=== PATIENT | male | born 1960 | race Caucasian/White ===

== ENCOUNTER 2021-10-13 06:16 | Observation (INO) ==
[2021-10-13] MEDS ORDERED: CeFAZolin Syr 2,000MG/20 ML 2,000 MG/20 ML SYRINGE IVPB ONE (06:29)
[2021-10-13] MEDS ORDERED: Ringers Solution, Lactated 1,000 ML IVC SCH ×2 (06:30→15:44)
[2021-10-13] MEDS ORDERED: Vancomycin 1,000 MG VIAL ONE (06:43)
[2021-10-13] MEDS ORDERED: Lidocaine -MPF 4% 5 ML AMPUL ONE (06:45)
[2021-10-13] MEDS ORDERED: *HR* FentaNYL (PF) 100 MCG/2 ML VIAL ONE (06:53)
[2021-10-13] MEDS ORDERED: *HR* Midazolam HCl 2 MG/2 ML VIAL ONE (06:53)
[2021-10-13] MEDS ORDERED: ROPIVACAINE/PF/NS 0.25% 1 EACH SYRINGE INTRAART ONE (06:57)
[2021-10-13] MEDS ORDERED: Ropivacaine/PF 0.5% 30 ML VIAL ONE (06:57)
[2021-10-13] MEDS ORDERED: Famotidine 20 MG TABLET PO ONE (07:00)
[2021-10-13] MEDS ORDERED: Povidone-Iodine 45 ML, Sodium Chloride IRRigation 1,000 ML IR ONE (07:30)
[2021-10-13] MEDS ORDERED: TOTAL JOINT MIXTURE (100ML) INTRAART ONE (07:30)
[2021-10-13] MEDS ORDERED: Tranexamic Acid 1,000 MG/10 ML VIAL ONE ×2 (07:46→08:18)
[2021-10-13] MEDS ORDERED: EPHEDrine 50 MG/ML VIAL ONE (08:12)
[2021-10-13] MEDS ORDERED: *HR* Propofol 200 MG/20 ML VIAL IVP ONE (10:13)
[2021-10-13] MEDS ORDERED: Sennosides 8.6 MG TABLET PO PRN (15:44)
[2021-10-13] MEDS ORDERED: Naloxone 0.4 MG/ML INJ IVP PRN (15:44)
[2021-10-13] MEDS ORDERED: *HR* Promethazine 25 MG/ML VIAL IM PRN (15:44)
[2021-10-13] MEDS ORDERED: *HR* HYDROmorphone (PF) 1 MG/ML SYRINGE IVP PRN (15:44)
[2021-10-13] MEDS ORDERED: Ondansetron 4 MG/2 ML VIAL IVP PRN (15:44)
[2021-10-13] MEDS ORDERED: MOM Conc 10 ML UD.LIQ PO PRN (15:44)
[2021-10-13] MEDS: CeFAZolin 2 GM/120 ML BAG IVPB SCH ×2 (17:00→23:50)
[2021-10-13] MEDS: Ketorolac 30 MG/ML VIAL IVP SCH ×3 (17:00→23:50)
[2021-10-13] MEDS: Ascorbic Acid 500 MG TABLET PO SCH (17:00)
[2021-10-14] MEDS: Ketorolac 30 MG/ML VIAL IVP SCH ×3 (05:45→18:10)
[2021-10-14 08:56] LABS: Basophils % 0.2 %; Eosinophils % 0.1 %; Hematocrit 32.8 % (37.5-50.1); Hemoglobin 11.1 g/dL (12.9-16.9); Immature Granulocytes % 0.2 % (0-4); Lymphocytes # 2.2 K/mcL (0.6-4.6); Lymphocytes % 23.3 %; Mean Corpuscular HGB Conc 33.8 g/dL (31.6-35.5); Mean Corpuscular Hemoglobin 31.2 pg (28.0-33.3); Mean Corpuscular Volume 92.1 fL (83.0-100.0); Mean Platelet Volume 10.5 fL (9.4-12.4); Monocytes # 0.8 K/mcL (0.0-1.3); Monocytes % 8.6 %; Neutrophils # 6.5 K/mcL (1.6-8.9); Platelet Count 199 K/mcL (140-400); Red Blood Count 3.56 M/mcL (4.19-5.50); Red Cell Distribution Width 13.2 % (11.5-14.5); Segmented Neutrophils % 67.6 %; White Blood Count 9.6 K/mcL (4.3-11.1)
[2021-10-14 09:16] LABS: BUN/Creatinine Ratio 24 (6-26); Blood Urea Nitrogen 15 mg/dL (6-20); Calcium 8.9 mg/dL (8.6-10.3); Carbon Dioxide 29 mEq/L (23-29); Chloride 103 mEq/L (98-107); Glucose 108 mg/dL (70-105); Osmolality,Calculated 285 (280-300); Potassium 3.9 mEq/L (3.5-5.1); Sodium 137 mEq/L (136-145); eGFR For African Americans > 60 (> 60); eGFR For Non-African Americans > 60 (> 60)
[2021-10-14] MEDS: Aspirin Enteric Coated 325 MG Tablet PO SCH ×2 (09:36→21:33)
[2021-10-14] MEDS: Multivit/Ca/Min/Fe/FA 1 TAB TABLET PO SCH (09:36)
[2021-10-14] MEDS: Ascorbic Acid 500 MG TABLET PO SCH ×2 (09:36→16:05)
[2021-10-14] MEDS: *HR* OxyCODONE Immed Rel 5 MG TABLET PO PRN ×2 (16:09→21:34)
[2021-10-15] MEDS: Ketorolac 30 MG/ML VIAL IVP SCH ×4 (00:03→21:49)
[2021-10-15] MEDS: *HR* OxyCODONE Immed Rel 5 MG TABLET PO PRN ×2 (03:28→17:53)
[2021-10-15 07:33] LABS: Basophils # 0.1 K/mcL (0.0-0.2); Basophils % 0.5 %; Eosinophils # 0.1 K/mcL (0.0-0.6); Eosinophils % 0.8 %; Hematocrit 33.8 % (37.5-50.1); Hemoglobin 11.1 g/dL (12.9-16.9); Immature Granulocytes % 0.1 % (0-4); Lymphocytes # 3.5 K/mcL (0.6-4.6); Lymphocytes % 38.8 %; Mean Corpuscular HGB Conc 32.8 g/dL (31.6-35.5); Mean Corpuscular Hemoglobin 30.3 pg (28.0-33.3); Mean Corpuscular Volume 92.3 fL (83.0-100.0); Mean Platelet Volume 10.6 fL (9.4-12.4); Monocytes % 10.7 %; Neutrophils # 4.5 K/mcL (1.6-8.9); Platelet Count 223 K/mcL (140-400); Red Blood Count 3.66 M/mcL (4.19-5.50); Red Cell Distribution Width 13.5 % (11.5-14.5); Segmented Neutrophils % 49.1 %; White Blood Count 9.1 K/mcL (4.3-11.1)
[2021-10-15 07:51] LABS: BUN/Creatinine Ratio 22 (6-26); Blood Urea Nitrogen 14 mg/dL (6-20); Calcium 8.8 mg/dL (8.6-10.3); Carbon Dioxide 29 mEq/L (23-29); Chloride 101 mEq/L (98-107); Glucose 103 mg/dL (70-105); Osmolality,Calculated 283 (280-300); Potassium 3.8 mEq/L (3.5-5.1); Sodium 136 mEq/L (136-145); eGFR For African Americans > 60 (> 60); eGFR For Non-African Americans > 60 (> 60)
[2021-10-15] MEDS: Ascorbic Acid 500 MG TABLET PO SCH ×2 (07:52→17:49)
[2021-10-15] MEDS: Multivit/Ca/Min/Fe/FA 1 TAB TABLET PO SCH (08:47)
[2021-10-15] MEDS: Aspirin Enteric Coated 325 MG Tablet PO SCH ×2 (08:47→22:09)
[2021-10-16] MEDS: Ketorolac 30 MG/ML VIAL IVP SCH ×2 (05:47)
[2021-10-16] MEDS: Multivit/Ca/Min/Fe/FA 1 TAB TABLET PO SCH (08:51)
[2021-10-16] MEDS: Aspirin Enteric Coated 325 MG Tablet PO SCH ×2 (08:51→21:14)
[2021-10-16] MEDS: Ascorbic Acid 500 MG TABLET PO SCH ×2 (08:52→18:00)
[2021-10-16] MEDS ORDERED: Ketorolac 30 MG/ML VIAL IVP PRN (10:58)
[2021-10-16] MEDS: *HR* OxyCODONE Immed Rel 5 MG TABLET PO PRN (21:14)
[2021-10-17] MEDS: *HR* OxyCODONE Immed Rel 5 MG TABLET PO PRN (03:53)
[2021-10-17] MEDS: Multivit/Ca/Min/Fe/FA 1 TAB TABLET PO SCH (07:48)
[2021-10-17] MEDS: Aspirin Enteric Coated 325 MG Tablet PO SCH ×2 (07:48→20:10)
[2021-10-17] MEDS: Ascorbic Acid 500 MG TABLET PO SCH ×2 (07:48→16:22)
[2021-10-18] MEDS: Ascorbic Acid 500 MG TABLET PO SCH ×2 (06:57→17:28)
[2021-10-18] MEDS: *HR* OxyCODONE Immed Rel 5 MG TABLET PO PRN ×2 (08:48→21:20)
[2021-10-18] MEDS: Multivit/Ca/Min/Fe/FA 1 TAB TABLET PO SCH (08:48)
[2021-10-18] MEDS: Aspirin Enteric Coated 325 MG Tablet PO SCH ×2 (08:49→20:00)
[2021-10-19] MEDS: *HR* OxyCODONE Immed Rel 5 MG TABLET PO PRN ×3 (07:31→23:32)
[2021-10-19] MEDS: Ascorbic Acid 500 MG TABLET PO SCH ×2 (07:32→15:56)
[2021-10-19] MEDS: Aspirin Enteric Coated 325 MG Tablet PO SCH ×2 (07:32→21:18)
[2021-10-19] MEDS: Multivit/Ca/Min/Fe/FA 1 TAB TABLET PO SCH (07:32)
[2021-10-19 19:51] LABS: Bacteria,Urine Few per hpf (None-Few); Bilirubin,Urine Negative (Negative); Blood,Urine Moderate (Negative); Clarity,Urine Turbid (Clear); Color,Urine Yellow (Yellow); Glucose,Urine (UA) Normal (Normal); Ketones,Urine Negative (Negative); Leukocyte Esterase,Urine Large (Negative); Mucus,Urine Few per lpf (None-Few); Nitrite,Urine Negative (Negative); Protein,Urine Trace mg/dL (Neg-Trace); RBC,Urine 50-100 per hpf (0-3); Specific Gravity,Urine 1.025 (1.010-1.025); WBC,Urine TNTC per hpf (0-3)
[2021-10-20] MEDS: Multivit/Ca/Min/Fe/FA 1 TAB TABLET PO SCH (08:18)
[2021-10-20] MEDS: Ascorbic Acid 500 MG TABLET PO SCH ×2 (08:19→16:19)
[2021-10-20] MEDS: Aspirin Enteric Coated 325 MG Tablet PO SCH ×2 (08:19→21:36)
[2021-10-20] MEDS: polyethylene glycoL 3350 17 GM POWD.PACK PO SCH ×3 (12:12→21:36)
[2021-10-20 13:09] LABS: Bacteria,Urine Few per hpf (None-Few); Bilirubin,Urine Negative (Negative); Blood,Urine Negative (Negative); Clarity,Urine Clear (Clear); Color,Urine Yellow (Yellow); Glucose,Urine (UA) Normal (Normal); Ketones,Urine Negative (Negative); Leukocyte Esterase,Urine Moderate (Negative); Mucus,Urine Few per lpf (None-Few); Nitrite,Urine Negative (Negative); Protein,Urine Trace mg/dL (Neg-Trace); Specific Gravity,Urine 1.023 (1.010-1.025); Squamous Epithelial Cell,Urine Few per hpf (None-Few); WBC,Urine 50-100 per hpf (0-3)
[2021-10-20] MEDS ORDERED: cefTRIAXone 1,000 MG in 0.9 % Sodium Chloride 10 ML IVP ONE (13:11)
[2021-10-20] MEDS: *HR* OxyCODONE Immed Rel 5 MG TABLET PO PRN ×2 (13:19→21:36)
[2021-10-20 13:25] LABS: Basophils # 0.1 K/mcL (0.0-0.2); Basophils % 0.6 %; Eosinophils # 0.2 K/mcL (0.0-0.6); Hematocrit 36.8 % (37.5-50.1); Hemoglobin 11.8 g/dL (12.9-16.9); Immature Granulocytes % 0.2 % (0-4); Lymphocytes # 2.4 K/mcL (0.6-4.6); Lymphocytes % 29.9 %; Mean Corpuscular HGB Conc 32.1 g/dL (31.6-35.5); Mean Corpuscular Hemoglobin 29.9 pg (28.0-33.3); Mean Corpuscular Volume 93.2 fL (83.0-100.0); Mean Platelet Volume 9.8 fL (9.4-12.4); Monocytes # 0.8 K/mcL (0.0-1.3); Monocytes % 9.6 %; Neutrophils # 4.6 K/mcL (1.6-8.9); Platelet Count 301 K/mcL (140-400); Red Blood Count 3.95 M/mcL (4.19-5.50); Red Cell Distribution Width 13.2 % (11.5-14.5); Segmented Neutrophils % 56.7 %; White Blood Count 8.1 K/mcL (4.3-11.1)
[2021-10-20 14:00] LABS: BUN/Creatinine Ratio 33 (6-26); Blood Urea Nitrogen 20 mg/dL (6-20); Calcium 9.6 mg/dL (8.6-10.3); Carbon Dioxide 26 mEq/L (23-29); Chloride 98 mEq/L (98-107); Glucose 95 mg/dL (70-105); Osmolality,Calculated 282 (280-300); Potassium 4.2 mEq/L (3.5-5.1); Sodium 135 mEq/L (136-145); eGFR For African Americans > 60 (> 60); eGFR For Non-African Americans > 60 (> 60)
[2021-10-20] MEDS: Doxycycline 100 MG CAPSULE PO SCH (21:36)
[2021-10-21] MEDS: *HR* OxyCODONE Immed Rel 5 MG TABLET PO PRN ×2 (06:02→19:37)
[2021-10-21] MEDS: Multivit/Ca/Min/Fe/FA 1 TAB TABLET PO SCH (08:37)
[2021-10-21] MEDS: Ascorbic Acid 500 MG TABLET PO SCH ×2 (08:37→16:42)
[2021-10-21] MEDS: polyethylene glycoL 3350 17 GM POWD.PACK PO SCH ×2 (08:38→19:36)
[2021-10-21] MEDS: Doxycycline 100 MG CAPSULE PO SCH ×2 (08:38→19:38)
[2021-10-21] MEDS: Aspirin Enteric Coated 325 MG Tablet PO SCH ×2 (08:38→19:37)
[2021-10-21 16:14] VITALS: BP 104/82; PULSE 75; TEMP 99.1; O2SAT 98
[2021-10-21 20:08] LABS: Influenza A PCR Negative (Negative); Influenza B PCR Negative (Negative); Resp. Syncytial Virus PCR Negative (Negative)
[2021-10-21 20:09] LABS: SARS-CoV-2 by PCR (In House) Negative (Negative)
[2021-10-22] MEDS ORDERED: polyethylene glycoL 3350 17 GM POWD.PACK PO SCH (09:00)
== END 2021-10-21 21:08 ==
LOC: SDCAOSI 06:16 → 4WAOSI 06:16
PROVIDERS: ADMIT Orthopaedic Surgery; ATTEND Orthopaedic Surgery